=== PATIENT | female | born 1955 | race Caucasian/White ===

== ENCOUNTER 2021-09-13 13:39 | Emergency (ER) | payer OTHER ==
[~2021-09-13] VITALS: Ht 149.9 cm; Wt 58.1 kg
[2021-09-13 13:50] VITALS: BP_SYST 124
--- NOTE | 2021-09-13 13:50 | NUR ---
Patient to ER bed 07 to gown for evaluation. Side rails up.
--- NOTE | 2021-09-13 13:50 | NUR ---
pt. sent here from PCP office because over last few months has passed out and had episodes of confusion and pain, because of these symptoms over past few months saw PCP and in office EKG was done and pt. was sent here for f/u, in PCP office EKG showed bradycardia
--- NOTE | 2021-09-13 14:12 | NUR ---
ER at bedside examining patient.
--- NOTE | 2021-09-13 14:22 | NUR ---
radiology at bedside for chest xray
[2021-09-13 15:15] LABS: BASOPHILS # (AUTO) 0.1 K/uL (0.0-0.2); BASOPHILS % (AUTO) 1.8 % (0.0-2.0); EOSINOPHILS # (AUTO) 0.4 K/uL (0.0-0.4); EOSINOPHILS % (AUTO) 6.1 % (0.0-4.0); HEMATOCRIT 26.1 % (36-48); HEMOGLOBIN 8.8 g/dL (12.0-16.0); LYMPHOCYTES # (AUTO) 1.3 K/uL (1.0-5.5); LYMPHOCYTES % (AUTO) 18.7 % (20.5-51.5); MEAN CORPUSCULAR HEMOGLOBIN 28 pg (27-31); MEAN CORPUSCULAR HGB CONC 34 % (32-36); MEAN CORPUSCULAR VOLUME 84 fL (79.0-98.0); MONOCYTES # (AUTO) 0.3 K/uL (0.0-1.0); MONOCYTES % (AUTO) 4.9 % (1.7-9.3); NEUTROPHILS # (AUTO) 4.7 K/uL (1.8-7.7); NEUTROPHILS % (AUTO) 68.5 % (40.0-70.0); PLATELET COUNT (AUTO) 425 K/uL (130-430); RED BLOOD CELL COUNT(AUTO) 3.13 MIL/uL (4.2-6.2); WHITE BLOOD COUNT (AUTO) 6.9 K/uL (4.8-10.8)
[2021-09-13 15:37] LABS: CREATININE 0.84 mg/dL (0.55-1.30); POTASSIUM 4.9 mmol/L (3.5-5.1)
--- NOTE | 2021-09-13 15:42 | NUR ---
pt. still unable to void water given
[2021-09-13 15:53] LABS: FREE T4 (FREE THYROXINE) 0.8 ng/dl (0.8-1.5); THYROID STIMULATING HORMONE 1.92 uIu/mL (0.36-3.74); TOTAL BILIRUBIN 0.2 mg/dL (0.0-1.0)
[2021-09-13 17:09] VITALS: BP_SYST 161
--- NOTE | 2021-09-13 17:10 | NUR ---
Patient given written and verbal discharge instructions and verbalizes understanding. ER Dr. Luis discussed with patient the results and treatment provided. Patient in stable condition. ID arm band removed. Patient educated on pain management and to follow up with PMD. Pain Scale 0. Opportunity for questions provided and answered. Medication side effect fact sheet provided.
== END 2021-09-13 17:10 | disposition home or self-care (01) ==
LOC: SED 13:39
DX: D64.9 Anemia, unspecified (principal); R42 Dizziness and giddiness; M79.7 Fibromyalgia; I10 Essential (primary) hypertension
CPT/HCPCS: 36415; 71045; 80053; 81002; 83880; 84439; 84443; 84479; 84484; 85025; 93005; 99285

== ENCOUNTER 2022-03-12 12:49 | Emergency (ER) | payer OTHER ==
[~2022-03-12] VITALS: Ht 152.4 cm; Wt 54.4 kg
[2022-03-12 13:35] VITALS: BP_SYST 114
--- NOTE | 2022-03-12 13:42 | NUR ---
BIBS WITH C/C OF ABNORMAL LABS. SENT TO ER FROM DR. LOWE'S OFFICE FOR HGB 6.9 ON 11/05/21. PT WITH HX OF IRON DEFICIENT ANEMIA WITH PRIOR TRANSFUSIONS. HX OF FIBROMYALGIA WITH C/O PAIN GENERALIZED PAIN 02/04 CHRONIC. BP STABLE. PLACED PT IN 4.
--- NOTE | 2022-03-12 13:50 | NUR ---
PT IN BED 4, ENDORSED TO SUGAR SIEGEL
--- NOTE | 2022-03-12 14:02 | NUR ---
PT SITTIG UP IN BED, IN NAD. RESP EVEN AND UNLABORED, ON RA @98%
[2022-03-12 15:08] LABS: BASOPHILS # (AUTO) 0.1 K/uL (0.0-0.2); BASOPHILS % (AUTO) 1.3 % (0.0-2.0); EOSINOPHILS # (AUTO) 0.4 K/uL (0.0-0.4); EOSINOPHILS % (AUTO) 4.9 % (0.0-4.0); HEMATOCRIT 22.5 % (36-48); HEMOGLOBIN 7.6 g/dL (12.0-16.0); LYMPHOCYTES # (AUTO) 1.8 K/uL (1.0-5.5); LYMPHOCYTES % (AUTO) 23.2 % (20.5-51.5); MEAN CORPUSCULAR HEMOGLOBIN 25 pg (27-31); MEAN CORPUSCULAR HGB CONC 34 % (32-36); MEAN CORPUSCULAR VOLUME 74 fL (79.0-98.0); MONOCYTES # (AUTO) 0.4 K/uL (0.0-1.0); MONOCYTES % (AUTO) 5.9 % (1.7-9.3); NEUTROPHILS # (AUTO) 4.9 K/uL (1.8-7.7); NEUTROPHILS % (AUTO) 64.7 % (40.0-70.0); PLATELET COUNT (AUTO) 436 K/uL (130-430); RED BLOOD CELL COUNT(AUTO) 3.04 MIL/uL (4.2-6.2); WHITE BLOOD COUNT (AUTO) 7.6 K/uL (4.8-10.8)
[2022-03-12 15:14] LABS: CALCIUM 8.7 mg/dL (8.4-11.0); CREATININE 0.82 mg/dL (0.55-1.30)
[2022-03-12 15:19] LABS: ALBUMIN 2.9 g/dL (3.4-4.8); TOTAL BILIRUBIN 0.3 mg/dL (0.0-1.0)
[2022-03-12 15:24] LABS: PROTHROMBIN TIME 10.9 SECS (9.5-12.5)
[2022-03-12 17:00] VITALS: BP_SYST 130
--- NOTE | 2022-03-12 17:00 | NUR ---
Patient given written and verbal discharge instructions and verbalizes understanding. ER MD discussed with patient the results and treatment provided. Patient in stable condition. ID arm band removed. IV catheter removed intact and dressing applied, no active bleeding. NO Rx given. Patient educated on pain management and to follow up with PMD. Pain Scale 0. Opportunity for questions provided and answered. Medication side effect fact sheet provided.
== END 2022-03-12 17:00 | disposition home or self-care (01) ==
LOC: SED 12:49
DX: D64.9 Anemia, unspecified (principal); R79.9 Abnormal finding of blood chemistry, unspecified; R53.1 Weakness; I10 Essential (primary) hypertension; Z91.040 Latex allergy status; Z79.899 Other long term (current) drug therapy
CPT/HCPCS: 36415; 80053; 82150; 83690; 85025; 85610-TC; 85730-TC; 86886; 86900; 86901; 99283